=== PATIENT | female | born 2000 | race Caucasian/White ===

== ENCOUNTER 2020-09-14 09:00 | Outpatient (CLI) | payer MEDICAID, SELFPAY ==
[~2020-09-14] VITALS: Ht 167.6 cm; Wt 53.5 kg
[2020-09-15 06:15] VITALS: BP_SYST 109
== END 2020-09-14 10:00 | disposition home or self-care (01) ==
LOC: SLB 09:00 → SDS 09-15 06:17 → SMU 09-15 06:17 → EDSTATUS 09-15 07:30 → SDS 09-15 07:50 → SMU 09-15 07:50
PROVIDERS: ATTEND Otolaryngology
DX: Z01.812 Encounter for preprocedural laboratory examination (principal); Z20.828 Contact with and (suspected) exposure to other viral communicable diseases; S02.2XXA Fracture of nasal bones, initial encounter for closed fracture; X58.XXXA Exposure to other specified factors, initial encounter; Y93.9 Activity, unspecified; Y92.9 Unspecified place or not applicable; Y99.9 Unspecified external cause status
CPT/HCPCS: 36415; 84703

== ENCOUNTER 2020-10-27 06:00 | Day surgery (SDC) | payer MEDICAID, SELFPAY ==
[~2020-10-27] VITALS: Ht 167.6 cm; Wt 53.5 kg
[2020-10-27 06:44] LABS: HCG,QUAL RESULT NEGATIVE (NEGATIVE)
[2020-10-27] MEDS ORDERED: LR 1,000 ML IV SCH (08:15)
[2020-10-27] MEDS ORDERED: HYDROmorphone 1 MG INJ. 1 MG/ML AMPUL IVP PRN ×2 (08:15)
[2020-10-27] MEDS ORDERED: MIDAZOLAM HCL 2 MG/2 ML VIAL (VERSED) IVP PRN (08:15)
[2020-10-27] MEDS ORDERED: MEPERIDINE HCL/PF 25 MG/ML DISP.SYRIN IVP PRN (08:15)
[2020-10-27] MEDS ORDERED: ONDANSETRON HCL 4 MG/2 ML VIAL IVP PRN (08:15)
[2020-10-27] MEDS ORDERED: METOCLOPRAMIDE HCL 10 MG/2 ML VIAL IVP PRN (08:15)
[2020-10-27 09:25] VITALS: BP_SYST 115
== END 2020-10-27 10:25 | disposition home or self-care (01) ==
LOC: SMU 06:00 → SDS 06:00
PROVIDERS: ATTEND Otolaryngology
DX: S02.2XXA Fracture of nasal bones, initial encounter for closed fracture (principal); W20.8XXA Other cause of strike by thrown, projected or falling object, initial encounter; Y93.89 Activity, other specified; Y92.89 Other specified places as the place of occurrence of the external cause; Y99.8 Other external cause status
CPT/HCPCS: 21337; 36415; 84703; 87426; J7120